=== PATIENT | female | born 1990 | race Caucasian/White ===

== ENCOUNTER 2017-09-03 12:32 | Emergency (ER) | payer OTHER ==
[~2017-09-03] VITALS: Ht 162.6 cm; Wt 97.4 kg
[2017-09-03 13:31] LABS: EOSINOPHIL (%) 1.2 % (0-5); EOSINOPHIL COUNT 0.1 K/uL (0-0.3); HEMATOCRIT 39.8 % (36.0-46.0); IMMATURE GRANULOCYTE (%) 0.1 % (0.0-0.7); INSTRUMENT ABS NEUTROPHIL CT 4.4 K/uL; LYMPHOCYTE COUNT 1.8 K/uL (1.0-2.8); MCH 28.4 PG (29.0-34.0); MCHC 32.9 G/DL (30.0-36.0); MCV 86.3 FL (83-99); MEAN PLAT.VOLUME 10.9 uM^3 (9.5-12.4); MONOCYTE (%) 7.4 % (3-12); MONOCYTE COUNT 0.5 K/uL (0-0.8); NEUTROPHIL (%) 64.9 % (45-76); NEUTROPHIL COUNT 4.4 K/uL (1.8-6.4); PLATELET COUNT 232 K/uL (156-360); RBC DIS.WIDTH-CV 12.4 % (11.8-14.6); RBC DIS.WIDTH-SD 38.8 % (39-53); RED BLOOD COUNT 4.61 M/uL (3.80-5.20); WHITE BLOOD COUNT 6.8 K/uL (4.1-10.2)
[2017-09-03 13:41] LABS: CHLORIDE 105 mEq/L (99-109); POTASSIUM 3.9 mEq/L (3.7-5.4); SODIUM 139 mEq/L (136-147)
[2017-09-03 13:42] LABS: MAGNESIUM 2.1 mg/dL (1.3-2.7)
[2017-09-03 13:44] LABS: GLUCOSE 104 mg/dL (70-99)
[2017-09-03 13:45] LABS: ANION GAP 9 MEQ/L (2-14)
[2017-09-03 13:46] LABS: TOTAL BILIRUBIN 0.3 mg/dL (0.0-1.0)
[2017-09-03 13:47] LABS: ALKALINE PHOSPHATASE 49 IU/L (3-129); GFR ESTIMATE (CALCULATED) > 59 mL/min/
[2017-09-03 13:49] LABS: UREA NITROGEN (BUN) 8 mg/dL (9-23)
[2017-09-03 13:51] LABS: LIPASE 23 U/L (1.0-51.0)
[2017-09-03 14:15] LABS: INTERNAL CONTROL VALID? YES
[2017-09-03 15:25] LABS: ADD MIUA? YES; BILIRUBIN NEGATIVE; BLOOD NEGATIVE; COLOR YELLOW ((YELLOW)); GLUCOSE (STRIP) NEGATIVE; KETONES 5; LEUKOCYTES NEGATIVE; NITRITE NEGATIVE; PROTEIN (STRIP) 30; SPECIFIC GRAVITY 1.025 (1.000-1.030); UROBILINOGEN 0.2 MG/DL (0.2-1.0)
[2017-09-03 15:46] LABS: BACTERIA RARE /HPF; EPITHELIAL CELLS 4+ /HPF; MUCUS TRACE /LPF; RED BLOOD CELLS 0-5 /HPF (0-5); UNCLASSIFIED CRYSTALS 1+ /HPF; WHITE BLOOD CELLS 0-5 /HPF (0-5)
[2017-09-03] MEDS ORDERED: MOTRIN600 MG PO (17:39)
[2017-09-03] MEDS ORDERED: ZOFRAN ODT4 MG PO (17:39)
[2017-09-03 18:22] VITALS: BP 141/75
== END 2017-09-03 18:23 | disposition home or self-care (01) ==
LOC: EME 12:32
PROVIDERS: Physician Assistant Medical
DX: R51 Headache (principal); R11.2 Nausea with vomiting, unspecified; Z87.440 Personal history of urinary (tract) infections; Z87.891 Personal history of nicotine dependence
CPT/HCPCS: 80053; 81003; 83690; 83735; 84703; 85025; 99281; 99284; J1885; J2405; J2765; J3010; J7030